=== PATIENT | female | born 1970 | race African-American/Black ===

== ENCOUNTER 2018-08-12 08:55 | Observation (INO) ==
[2018-08-12 10:42] LABS: Albumin 3.5 G/DL (3.4-5.0); Bilirubin,Total 0.7 MG/DL (0.2-1.0); Calcium 8.4 MG/DL (8.5-10.1); Osmolality,Calculated 271.8 MOS/KG (273-304); Potassium 3.4 MMOL/L (3.5-5.1); Total Protein 8.4 G/DL (6.4-8.3)
[2018-08-12] MEDS ORDERED: NITROGLYCERIN 2% OINT 1 INCH/GM PACK TOP STA (10:51)
[2018-08-12] MEDS ORDERED: METOPROLOL TARTRATE 5 MG/5 ML VIAL IV STA (10:51)
[2018-08-12] MEDS ORDERED: ENOXAPARIN 100 MG/ML SYRINGE SUBCUT STA (10:51)
[2018-08-12] MEDS ORDERED: ASPIRIN CHEW 81 MG TABLET PO STA (10:51)
[2018-08-12] MEDS ORDERED: ONDANSETRON 4 MG/2 ML VIAL IV STA (10:56)
[2018-08-12 11:18] LABS: Basophils % 0.6 % (0.0-0.8); Eosinophils # 0.1 10*3/uL (0.0-0.87); Eosinophils % 1.2 % (0.00-10.9); Hematocrit 26.6 VOL% (35.7-47.0); Hemoglobin 7.8 GM/DL (12.0-16.0); Immature Granulocytes % 0.2 %; Immature Granulocytes Absolute 0.01 #; Lymphocytes # 1.6 10*3/uL (1.4-4.0); Lymphocytes % 31.5 % (21.3-54.2); Mean Corpuscular HGB Conc 29.3 GM/DL (32-36); Mean Corpuscular Hemoglobin 22 PG (27-34); Mean Corpuscular Volume 74.9 FL (87-102); Mean Platelet Volume 9.4 FL (9.6-12.0); Monocytes # 0.4 10*3/uL (0.11-0.8); Monocytes % 8.3 % (1.7-12.7); Neutrophils % 58.2 % (38.7-73.9); Platelet Count 354 T/CUMM (130-400); Red Blood Count 3.55 MC/CUMM (3.8-5.5); Red Cell Distribution Width 17.5 % (9.3-17.3); White Blood Count 5.2 T/CUMM (4-12)
[2018-08-12 11:30] LABS: INR 0.9; PT Patient Result 9.9 SECS; Partial Thromboplastin Time 25.5 SECS (0-40)
[2018-08-12] MEDS ORDERED: MORPHINE 4 MG/1 ML VIAL IV PRN (11:51)
[2018-08-12] MEDS ORDERED: ACETAMINOPHEN 325 MG TABLET PO PRN (11:51)
[2018-08-12] MEDS ORDERED: DOCUSATE SODIUM 100 MG CAPSULE PO PRN (11:51)
[2018-08-12] MEDS ORDERED: ONDANSETRON 4 MG/2 ML VIAL IV PRN (11:51)
[2018-08-12] MEDS ORDERED: hydrALAZINE 20 MG/1 ML VIAL IV PRN (11:54)
[2018-08-12 11:55] LABS: % Iron Saturation 3.4 % (18-50); Ferritin 4.7 ng/ml (8-252)
[2018-08-12] MEDS ORDERED: amLODIPine 10 MG TABLET PO SCH (12:00)
[2018-08-12 12:02] LABS: Folate 11.3 NG/ML (5.4-24.0)
[2018-08-12 12:15] LABS: Risk Ratio 2.29; VLDL CHOLESTEROL 21.4 MG/DL
[2018-08-12] MEDS ORDERED: POTASSIUM CHLORIDE 20 MEQ TABLET PO STA (13:12)
[2018-08-12] MEDS: FERROUS SULFATE 325 MG TABLET PO SCH ×2 (15:34→22:28)
[2018-08-12] MEDS: LOSARTAN 25 MG TABLET PO SCH ×2 (15:34→22:28)
[2018-08-12] MEDS: CARVEDILOL 12.5 MG TABLET PO SCH ×2 (15:34→22:28)
[2018-08-12] MEDS: amLODIPine 5 MG TABLET PO SCH ×2 (15:36→22:28)
[2018-08-13 01:48] LABS: Basophils % 0.4 % (0.0-0.8); Eosinophils # 0.1 10*3/uL (0.0-0.87); Eosinophils % 1.3 % (0.00-10.9); Hematocrit 23.9 VOL% (35.7-47.0); Hemoglobin 6.9 GM/DL (12.0-16.0); Immature Granulocytes % 0.2 %; Immature Granulocytes Absolute 0.01 #; Lymphocytes # 1.8 10*3/uL (1.4-4.0); Lymphocytes % 40.1 % (21.3-54.2); Mean Corpuscular HGB Conc 28.9 GM/DL (32-36); Mean Corpuscular Hemoglobin 22 PG (27-34); Mean Corpuscular Volume 74.9 FL (87-102); Mean Platelet Volume 9.2 FL (9.6-12.0); Monocytes # 0.4 10*3/uL (0.11-0.8); Monocytes % 8.3 % (1.7-12.7); Neutrophils # 2.3 10*3/uL (1.4-7.4); Neutrophils % 49.7 % (38.7-73.9); Platelet Count 289 T/CUMM (130-400); Red Blood Count 3.19 MC/CUMM (3.8-5.5); Red Cell Distribution Width 17.3 % (9.3-17.3); White Blood Count 4.6 T/CUMM (4-12)
[2018-08-13 02:04] LABS: Osmolality,Calculated 273.7 MOS/KG (273-304); Potassium 3.5 MMOL/L (3.5-5.1)
[2018-08-13 02:05] LABS: Calcium 7.7 MG/DL (8.5-10.1); Osmolality,Calculated 277.4 MOS/KG (273-304); Potassium 3.5 MMOL/L (3.5-5.1)
[2018-08-13] MEDS ORDERED: LORazepam 2 MG/1 ML VIAL ONE (02:52)
[2018-08-13] MEDS ORDERED: SODIUM CHLORIDE 0.9% 1,000 ML IV PRN (08:55)
[2018-08-13] MEDS ORDERED: ENOXAPARIN 40 MG/0.4 ML SYRINGE SUBCUT SCH (09:00)
[2018-08-13] MEDS ORDERED: ASPIRIN 325 MG TABLET PO SCH (09:00)
[2018-08-13] MEDS ORDERED: PANTOPRAZOLE 40 MG TABLET PO SCH (09:00)
[2018-08-13] MEDS: LOSARTAN 25 MG TABLET PO SCH (09:06)
[2018-08-13] MEDS: CARVEDILOL 12.5 MG TABLET PO SCH (09:06)
[2018-08-13] MEDS: FERROUS SULFATE 325 MG TABLET PO SCH (09:06)
[2018-08-13] MEDS: amLODIPine 5 MG TABLET PO SCH (09:07)
[2018-08-13 16:25] VITALS: BP 129/91
[2018-08-13 18:07] LABS: Hematocrit 33.6 VOL% (35.7-47.0); Hemoglobin 10.1 GM/DL (12.0-16.0)
== END 2018-08-13 19:15 | disposition home or self-care (01) ==
LOC: N.EDINP 08:55 → N.ED 08:55 → N.TELEN 13:47
PROVIDERS: ADMIT Internal Medicine; ATTEND Internal Medicine

== ENCOUNTER 2021-08-07 10:27 | Inpatient (IN) ==
[2021-08-07] MEDS ORDERED: PANTOPRAZOLE 40 MG TABLET PO ONE (12:29)
[2021-08-07] MEDS: PANTOPRAZOLE 40 MG TABLET PO SCH (12:50)
[2021-08-07] MEDS ORDERED: GLUCAGON 1 MG VIAL IM PRN (13:36)
[2021-08-07] MEDS ORDERED: ONDANSETRON 4 MG/2 ML VIAL IV PRN (13:36)
[2021-08-07] MEDS ORDERED: DOCUSATE SODIUM 100 MG CAPSULE PO PRN (13:36)
[2021-08-07] MEDS ORDERED: DEXTROSE 50% 25 GM/50 ML SYRINGE IV PRN (13:36)
[2021-08-07] MEDS ORDERED: ACETAMINOPHEN 325 MG TABLET PO PRN (13:36)
[2021-08-07] MEDS ORDERED: ALUMINUM/MAGNES/SIMETH MAX STR 30 ML UDCUP PO PRN (13:36)
[2021-08-07] MEDS ORDERED: hydrALAZINE 20 MG/1 ML VIAL IV PRN (13:36)
[2021-08-07] MEDS ORDERED: SODIUM CHLORIDE 0.9% 1,000 ML IV PRN (13:47)
[2021-08-07 14:09] LABS: Bilirubin,Total 0.49 MG/DL (0.20-1.00); Calcium 8.5 MG/DL (8.5-10.1)
[2021-08-07 14:10] LABS: Albumin 3.3 G/DL (3.4-5.0); Osmolality,Calculated 275.7 MOS/KG (273-304); Potassium 3.7 MMOL/L (3.5-5.1); Total Protein 6.6 G/DL (6.4-8.2)
[2021-08-07 14:44] LABS: Hematocrit 20.3 VOL% (35.7-47.0)
[2021-08-07] MEDS: LACTATED RINGERS 1,000 ML IV SCH (14:47)
[2021-08-07 14:48] LABS: Hemoglobin 5.9 GM/DL (12.0-16.0)
[2021-08-07 15:12] LABS: % Iron Saturation 4.1 % (18-50)
[2021-08-07 15:21] LABS: Thyroid Stimulating Hormone 0.851 uIU/ml (0.358-3.74)
[2021-08-07 16:34] LABS: Basophils % 0.2 % (0.0-0.8); Eosinophils % 0.9 % (0.00-10.9); Immature Granulocytes % 0.7 %; Immature Granulocytes Absolute 0.03 #; Lymphocytes # 1.1 10*3/uL (1.4-4.0); Lymphocytes % 25.6 % (21.3-54.2); Mean Corpuscular HGB Conc 28.9 GM/DL (32-36); Mean Corpuscular Volume 79.8 FL (87-102); Mean Platelet Volume 10.3 FL (9.6-12.0); Monocytes % 8.5 % (1.7-12.7); Neutrophils % 64.1 % (38.7-73.9); Platelet Count 295 T/CUMM (130-400); Red Blood Count 2.38 MC/CUMM (3.8-5.5); Red Cell Distribution Width 18.6 % (9.3-17.3); White Blood Count 4.5 T/CUMM (4-12)
[2021-08-07 16:39] LABS: Hemoglobin 5.5 GM/DL (12.0-16.0)
[2021-08-07 16:52] LABS: Folate 16.37 NG/ML (5.38-24.0); Vitamin B12 553 PG/ML (211-911)
[2021-08-07] MEDS ORDERED: BISACODYL 5 MG TABLET PO PRN (16:52)
[2021-08-07] MEDS ORDERED: guaiFENesin/DM ER 600-30 MG TABLET PO PRN (16:53)
[2021-08-07 17:45] LABS: Sedimentation Rate-Westergren 52 MM/HR (0-30)
[2021-08-07 19:11] LABS: Atypical Lymphocytes Few; Eosinophils 1 % (0-10); Hypochromasia 4+; Lymphocytes 26 % (20-55); Metamyelocytes 1 %; Microcytosis 2+; Platelet Estimate Normal; Polychromasia Slight; Segmented Neutrophils 64 % (50-85); Total Cells Counted 100
[2021-08-07] MEDS: ZALEPLON 5 MG CAPSULE PO PRN (22:53)
[2021-08-08] MEDS: LACTATED RINGERS 1,000 ML IV SCH ×2 (01:10→12:20)
[2021-08-08 01:57] LABS: Hematocrit 25.2 VOL% (35.7-47.0); Hemoglobin 7.7 GM/DL (12.0-16.0)
[2021-08-08 06:05] LABS: Basophils % 0.5 % (0.0-0.8); Eosinophils # 0.1 10*3/uL (0.0-0.87); Eosinophils % 1.5 % (0.00-10.9); Hematocrit 25.9 VOL% (35.7-47.0); Hemoglobin 7.7 GM/DL (12.0-16.0); Immature Granulocytes % 0.5 %; Immature Granulocytes Absolute 0.02 #; Lymphocytes # 0.9 10*3/uL (1.4-4.0); Mean Corpuscular HGB Conc 29.7 GM/DL (32-36); Mean Platelet Volume 9.7 FL (9.6-12.0); Monocytes % 7.5 % (1.7-12.7); Platelet Count 253 T/CUMM (130-400); Red Blood Count 3.12 MC/CUMM (3.8-5.5); Red Cell Distribution Width 18.4 % (9.3-17.3); White Blood Count 4.1 T/CUMM (4-12)
[2021-08-08 06:44] LABS: Albumin 2.6 G/DL (3.4-5.0); Bilirubin,Total 1.1 MG/DL (0.20-1.00); Osmolality,Calculated 279.4 MOS/KG (273-304); Potassium 3.6 MMOL/L (3.5-5.1); Risk Ratio 2.17; Total Protein 6.1 G/DL (6.4-8.2); VLDL Cholesterol 16.6 MG/DL
[2021-08-08 08:25] LABS: Hemoglobin 8.3 GM/DL (12.0-16.0)
[2021-08-08] MEDS: PANTOPRAZOLE 40 MG TABLET PO SCH (08:37)
[2021-08-08] MEDS ORDERED: SODIUM CHLORIDE 0.9% 1,000 ML IV PRN (10:15)
[2021-08-08 10:30] LABS: Hemoglobin A1 (Alkaline) 98.5 % (96.5-98.5); Hemoglobin A2 (Alkaline) 1.5 % (1.5-3.5)
[2021-08-08] MEDS ORDERED: FUROSEMIDE 20 MG/2 ML VIAL IV ONE (11:00)
[2021-08-08] MEDS: carvediloL 12.5 MG TABLET PO SCH (16:12)
[2021-08-08] MEDS: amLODIPine 5 MG TABLET PO SCH (20:55)
[2021-08-08] MEDS: ZALEPLON 5 MG CAPSULE PO PRN (20:55)
[2021-08-08] MEDS: LOSARTAN 25 MG TABLET PO SCH (20:55)
[2021-08-09] MEDS: LACTATED RINGERS 1,000 ML IV SCH (01:00)
[2021-08-09 05:14] LABS: Basophils % 0.4 % (0.0-0.8); Eosinophils # 0.1 10*3/uL (0.0-0.87); Eosinophils % 1.4 % (0.00-10.9); Hematocrit 26.7 VOL% (35.7-47.0); Hemoglobin 8.1 GM/DL (12.0-16.0); Immature Granulocytes % 0.4 %; Immature Granulocytes Absolute 0.02 #; Lymphocytes % 20.1 % (21.3-54.2); Mean Corpuscular HGB Conc 30.3 GM/DL (32-36); Mean Corpuscular Volume 82.2 FL (87-102); Mean Platelet Volume 9.9 FL (9.6-12.0); Monocytes % 7.9 % (1.7-12.7); Neutrophils % 69.8 % (38.7-73.9); Platelet Count 264 T/CUMM (130-400); Red Blood Count 3.25 MC/CUMM (3.8-5.5); Red Cell Distribution Width 17.9 % (9.3-17.3); White Blood Count 4.9 T/CUMM (4-12)
[2021-08-09 05:36] LABS: Calcium 8.1 MG/DL (8.5-10.1); Osmolality,Calculated 278.4 MOS/KG (273-304); Potassium 3.6 MMOL/L (3.5-5.1)
[2021-08-09] MEDS: LOSARTAN 25 MG TABLET PO SCH ×2 (08:23→09:07)
[2021-08-09] MEDS: carvediloL 12.5 MG TABLET PO SCH ×2 (08:23→09:07)
[2021-08-09] MEDS: amLODIPine 5 MG TABLET PO SCH ×2 (08:23→09:06)
[2021-08-09] MEDS: PANTOPRAZOLE 40 MG TABLET PO SCH (09:06)
[2021-08-09 13:28] LABS: Hematocrit 35.3 VOL% (35.7-47.0)
[2021-08-09 15:59] VITALS: BP 142/67
== END 2021-08-09 18:08 | disposition home or self-care (01) | DRG 760 ==
LOC: N.ED 10:27 → SUATTDRO 13:36 → N.EDINP 13:36 → N.5E 22:07
PROVIDERS: ADMIT Internal Medicine; ATTEND Internal Medicine